=== PATIENT | male | born 1960 | race Caucasian/White ===

== ENCOUNTER 2023-07-23 10:36 | Day surgery (SDC) | payer MEDICARE, OTHER ==
[2023-07-23] MEDS ORDERED: fentaNYL citrate 0.05 MG/ML VIAL ONE (12:18)
[2023-07-23] MEDS ORDERED: LIDOCAINE 2% 100 MG/5 ML UJET TP ONE (12:18)
[2023-07-23] MEDS ORDERED: MIDAZOLAM 5 MG/5 ML VIAL ONE (12:18)
[2023-07-23] MEDS ORDERED: fentaNYL citrate 0.05 MG/ML VIAL IVP ONE (15:50)
== END 2023-07-23 13:30 | disposition home or self-care (01) ==
LOC: MDS 10:36 → MMU 10:37 → MDS 13:30
PROVIDERS: ATTEND Internal Medicine Gastroenterology
DX: Z12.11 Encounter for screening for malignant neoplasm of colon (principal); K63.5 Polyp of colon; K64.9 Unspecified hemorrhoids; Z86.010 Personal history of colon polyps; I10 Essential (primary) hypertension; E78.00 Pure hypercholesterolemia, unspecified; E03.9 Hypothyroidism, unspecified; M19.90 Unspecified osteoarthritis, unspecified site; Z79.899 Other long term (current) drug therapy
CPT/HCPCS: J2250; J3010